=== PATIENT | female | born 1990 ===

== ENCOUNTER 2020-01-03 09:00 | Emergency (ER) | payer MEDICAID ==
[2020-01-03] MEDS ORDERED: prednisoLONE Syrup 5 MG/5 ML ML 120 ML Bottle PO ONE (09:04)
[2020-01-03] MEDS ORDERED: Albuterol/Ipratropium 3.0-0.5 MG/3 ML Neb Soln ONE (09:08)
[2020-01-03] MEDS ORDERED: Albuterol/Ipratropium 3.0-0.5 MG/3 ML Neb Soln NEB ONE (09:09)
[2020-01-03] MEDS ORDERED: predniSONE 20 MG Tab PO ONE (09:23)
[2020-01-03] MEDS ORDERED: Cetirizine 10 MG Tab PO ONE (09:37)
--- NOTE | 2020-01-03 09:39 | EDM.PDOC ---
ED HPI GENERAL MEDICAL PROBLEM - General Chief Complaint: Asthma Stated Complaint: SOB, ASTHMA Time Seen by Provider: 01/03/20 09:20 Source of Information: Reports: Patient History Limitations: Reports: No Limitations - History of Present Illness INITIAL COMMENTS - FREE TEXT/NARRATIVE: Patient comes in with complaint of wheezing. Has asthma for which she relies on an albuterol rescue inhaler around 5 times a week. Forgot to bring it camping with her this weekend. Thinks the bug spray/pollen set it off. Has some SOB/wheezing. Denies other complaints during ROS. 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 Denies: Throat Swelling Respiratory: Reports: Shortness of Breath, Wheezing. Denies: Pleuritic Chest Pain, Cough, Sputum, Hemoptysis Cardiovascular: Reports: No Symptoms. Denies: Chest Pain, Lightheadedness, Palpitations GI/Abdominal: Reports: No Symptoms : Reports: No Symptoms Musculoskeletal: Reports: No Symptoms Skin: Reports: No Symptoms Neurological: Reports: No Symptoms Psychiatric: Reports: No Symptoms Hematologic/Lymphatic: Reports: No Symptoms ED EXAM, GENERAL - Physical Exam Exam: See Below Exam Limited By: No Limitations General Appearance: Alert, WD/WN, No Apparent Distress Eye Exam: Bilateral Eye: EOMI, PERRL Ears: Hearing Grossly Normal Nose: No: Nasal Deformity, Nasal Swelling, Nasal Drainage Throat/Mouth: Normal Lips, Normal Voice, No Airway Compromise Head: Atraumatic, Normocephalic Neck: Supple, Non-Tender Respiratory/Chest: No Respiratory Distress, Lungs Clear, Normal Breath Sounds, No Accessory Muscle Use, Other (Patient received immediate neb after arrival/wheezing resolved prior to ascultation) Cardiovascular: Regular Rate, Rhythm, No Murmur GI/Abdominal: Soft Extremities: Normal Capillary Refill Neurological: Alert, Oriented, Normal Cognition Psychiatric: Normal Affect, Normal Mood Skin Exam: Warm, Dry, Intact, Normal Color Course - Orders/Labs/Meds Orders: Active Orders 24 hr Category Date Time Status RT Aerosol Therapy [RC] ASDIRECTED Care 01/03/20 09:09 Active Meds: Medications Discontinued Medications Generic Name Dose Route Start Last Admin Trade Name Freq PRN Reason Stop Dose Admin Albuterol/Ipratropium 3 ml 01/03/20 09:09 01/03/20 09:18 Duoneb 3.0-0.5 Mg/3 Ml NEB 01/03/20 09:10 3 ml ONETIME ONE Administration Albuterol/Ipratropium Confirm 01/03/20 09:08 01/03/20 09:18 Duoneb 3.0-0.5 Mg/3 Ml Administered 01/03/20 09:09 Not Given Dose 3 ml .ROUTE .STK-MED ONE Cetirizine HCl 10 mg 01/03/20 09:37 Zyrtec PO 01/03/20 09:38 ONETIME ONE Prednisolone 40 mg 01/03/20 09:04 01/03/20 09:23 Prelone 5 Mg/5 Ml PO 01/03/20 09:05 Not Given ONETIME ONE Prednisone 40 mg 01/04/20 09:22 Prednisone PO 01/04/20 09:23 ONETIME ONE Prednisone 40 mg 01/03/20 09:23 01/03/20 09:26 Prednisone PO 01/03/20 09:24 40 mg ONETIME ONE Administration - Re-Assessments/Exams Free Text/Narrative Re-Assessment/Exam: 01/03/20 10:28 Patient given immediate neb after arrival to ER. Later also received Prednisone and Zyrtec PO. SOB complaint completely resolved. Plan at this time is to give patient an albuterol MDI from ER stock for PRN use. To follow up as needed if problems return. Patient agreeable with plan. Departure - Departure Time of Disposition: 09:36 Disposition: Home, Self-Care 01 Condition: Good Clinical Impression: Asthma with acute exacerbation Qualifiers: Asthma severity: mild Asthma persistence: intermittent Qualified Code(s): J45.21 - Mild intermittent asthma with (acute) exacerbation - Discharge Information *PRESCRIPTION DRUG MONITORING PROGRAM REVIEWED*: Not Applicable *COPY OF PRESCRIPTION DRUG MONITORING REPORT IN PATIENT MEÑO: Not Applicable Forms: ED Department Discharge Additional Instructions: Follow up as needed if you have additional problems. Use Proventil Inhaler 1-2 puffs every 4-6 hours as needed for shortness of breath. Remember to check in with your doctor and discuss starting a preventative inhaler if you are averaging more than 4+ uses of the albuterol inhaler weekly. Sepsis Event Note (ED) - Evaluation Sepsis Screening Result: No Definite Risk - My Orders Last 24 Hours: My Active Orders 01/03/20 09:09 RT Aerosol Therapy [RC] ASDIRECTED - Assessment/Plan Last 24 Hours: My Active Orders 01/03/20 09:09 RT Aerosol Therapy [RC] ASDIRECTED
[2020-01-04] MEDS ORDERED: predniSONE 20 MG Tab PO ONE (09:22)
== END 2020-01-03 09:49 | disposition home or self-care (01) ==
LOC: LL.ED 09:00
DX: J45.21 Mild intermittent asthma with (acute) exacerbation (principal); J45.909 Unspecified asthma, uncomplicated; E66.9 Obesity, unspecified; Z88.1 Allergy status to other antibiotic agents; Z88.0 Allergy status to penicillin; Z88.8 Allergy status to other drugs, medicaments and biological substances
CPT/HCPCS: 99284; J7512; J7620-GY